=== PATIENT | female | born 1980 | race Caucasian/White ===

== ENCOUNTER 2020-10-15 06:06 | Emergency (ER) | payer BC ==
[2020-10-15] MEDS ORDERED: methylPREDNISolone Sod Succ/PF 125 MG/2 ML VIAL ONE (06:37)
== END 2020-10-15 07:10 | disposition home or self-care (01) ==
LOC: BURERS 06:06
DX: M54.2 Cervicalgia (principal); F17.200 Nicotine dependence, unspecified, uncomplicated
CPT/HCPCS: 96372; 99406; J2930